=== PATIENT | female | born 1940 | race Caucasian/White ===

== ENCOUNTER 2021-10-21 22:31 | Inpatient (IN) | payer MEDICARE, BC ==
[~2021-10-21] VITALS: Ht 167.6 cm; Wt 51.7 kg
--- NOTE | 2021-10-21 22:50 | NUR ---
PATIENT WAS [id number] WITH COMPLAINTS OF PAIN AT THE RIGHT SIDE OF THE BACK OF HEAD PAIN S/P WITNESSED SYNCOPAL EPISODE. SHE WAS KO'D AND SUSTAINED AN ABRASION. PT IS AAO X 4, NO SIGN OF ACUTE DISTRESS, BREATHING WAS EVEN AND UNLABORED. PT CAME WITH IV LINE AT LAC 20G, PATENT AND FLUSHING WELL. PT WAS SEEN AND EXAMINED BY DR STOCKTON. PT ATTACHED TO MONITOR AND PULSE OX. WILL CONTINUE TO MONITOR AND CARRY OUT MD ORDERS.
[2021-10-21] MEDS ORDERED: SIMV-49 PO (22:56)
[2021-10-21] MEDS ORDERED: EZET10TA16 PO (22:57)
[2021-10-21] MEDS ORDERED: ACYC200C31 PO (22:58)
[2021-10-21] MEDS ORDERED: ZOLP10TA2 PO (22:58)
[2021-10-21] MEDS ORDERED: HYDR-3972 PO (22:59)
[2021-10-21] MEDS ORDERED: HYDR-3976 PO (22:59)
[2021-10-21] MEDS ORDERED: TDAP [DIPH/PERTUSSIS/TET] 0.5 ML VIAL IM ONE ×2 (23:00)
[2021-10-21] MEDS ORDERED: METO25TA4 PO (23:00)
[2021-10-21] MEDS ORDERED: CYCL5TAB PO (23:01)
--- NOTE | 2021-10-21 23:17 | NUR ---
ACUTE CARE NURSE PRACTITIONER AT PT'S BEDSIDE
[2021-10-21 23:19] LABS: BASOPHILS % (AUTO) 0.6 % (0.0-2.0); EOSINOPHILS % (AUTO) 1.3 % (0.0-6.0); HEMATOCRIT 39 % (33-45); HEMOGLOBIN 12.9 g/dL (11.5-14.8); LYMPHOCYTES # (AUTO) 2.5 K/uL (0.8-4.8); MEAN CORPUSCULAR HGB CONC 33 g/dl (31.0-36.0); MEAN CORPUSCULAR VOLUME 90 fL (82-100); MONOCYTES # (AUTO) 0.5 K/uL (0.1-1.30); MONOCYTES % (AUTO) 7.2 % (2.0-12.0); NEUTROPHILS # (AUTO) 3.7 K/uL (1.8-8.9); NEUTROPHILS % (AUTO) 53.9 % (43.0-81.0); PLATELET COUNT (AUTO) 196 K/uL (150-450); RED BLOOD CELL COUNT(AUTO) 4.36 MIL/uL (4.0-5.2); WHITE BLOOD COUNT (AUTO) 6.8 K/uL (4.3-11.0)
[2021-10-21 23:34] LABS: CALCIUM, SERUM 9.3 mg/dL (8.5-10.1); CARBON DIOXIDE 33 mmol/L (21-32); CHLORIDE 102 mmol/L (98-107); CREATININE 0.8 mg/dL (0.6-1.3); GLUCOSE 119 mg/dL (74-106); POTASSIUM 4.3 mmol/L (3.5-5.1); SODIUM SERUM 140 mmol/L (136-145); UREA NITROGEN, BLOOD 32 mg/dL (7-18)
[2021-10-21 23:39] LABS: ALANINE AMINOTRANSFERASE 55 U/L (12-78); ALBUMIN 3.8 g/dL (3.4-5.0); ALKALINE PHOSPHATASE 69 U/L (46-116); ASPARTATE AMINOTRANSFERASE 41 U/L (15-37); BILIRUBIN,DIRECT 0.1 mg/dL (0.0-0.2); BILIRUBIN,TOTAL 0.5 mg/dL (0.2-1.0)
--- NOTE | 2021-10-21 23:59 | NUR ---
PT BACK TO BED [address]
[2021-10-22] VITALS (7 sets, daily range): BP systolic 134–151; BP diastolic 58–78
[2021-10-22] MEDS ORDERED: LIDOCAINE 0.5%-EPI 1:200,000 50 ML VIAL ONE (00:23)
--- NOTE | 2021-10-22 00:30 | NUR ---
PT AT BEDSIDE, STATES PT'S PRIMARY IS WITH [facility] AND WANTED TO POSSIBLY TRANSFER PATIENT. ADVISED PT PT WILL BE ADMITTED INPATIENT TONIGHT AND CM WILL HAVE TO ARRANGE TRANSFER IN AM.
[2021-10-22] MEDS ORDERED: IV NS 0.9% 1,000 ML IV PRN ×2 (01:00→07:24)
[2021-10-22] MEDS ORDERED: MAGNESIUM HYDROXIDE 30 ML UDC PO PRN (01:00)
[2021-10-22] MEDS ORDERED: MAG HYDROX/AL HYDROX/SIMETH 30 ML UDC PO PRN (01:00)
[2021-10-22] MEDS ORDERED: HYDROCODONE/APAP 5/325MG TABLET PO PRN (01:00)
[2021-10-22] MEDS ORDERED: ACETAMINOPHEN 325 MG TABLET PO PRN (01:00)
[2021-10-22] MEDS ORDERED: Z GUARD REMEDY 2 OZ OINT TP PRN (01:00)
[2021-10-22] MEDS ORDERED: ONDANSETRON HCL/PF 4 MG/2 ML VIAL IVP PRN (01:00)
--- NOTE | 2021-10-22 02:19 | NUR ---
FAXED CLINICAL AND FACESHEET TO [facility] TRANSFER
--- NOTE | 2021-10-22 03:45 | NUR ---
REPORT GIVEN TO RENETTA SMITH FOR CONTINUATION OF CARE
--- NOTE | 2021-10-22 03:46 | NUR ---
PATIENT TRANSFERRED UNDER ACLS
--- NOTE | 2021-10-22 04:00 | NUR ---
RESPIRATORY TECHNICIAN ADMITTING NOTE PT TRANSPORTED BY STRETCHER TO UNIT AT THIS TIME FROM ED. RECEIVED REPORT FROM SARAH COTE @ ED. PT IS A/O X4, ABLE TO COMMUNICATE NEEDS. NO SOB NOTED, NO C/O PAIN AT THIS TIME. NO S/S OF ANY APPARENT DISTRESS NOTED. RESPIRATIONS EVEN AND UNLABORED. ACTIVE BOWEL SOUNDS AUSCULTATED THROUGHOUT, ABDOMEN IS NON DISTENDED. SKIN IS INTACT, WARM TO TOUCH. CAPILLARY REFILL < 3 SECS, PULSES PRESENT BILATERALLY, GOOD CIRCULATION NOTED. IV ACCESS NOTED IN LEFT AC G # 20 SL AND R AC G # 18, INTACT, PATENT AND FLUSHING WELL. PT'S BELONGINGS ACCOUNTED FOR AND KEPT AT BEDSIDES PER PT REQUEST. ASPIRATION PRECAUTIONS IN PLACE AND MAINTAINED AT ALL TIMES, BED IN LOWEST, LOCKED POSITION, SIDE RAILS UP X2, TABLE AND CALL LIGHT WITHIN REACH. WILL CONTINUE WITH PLAN OF CARE.
[2021-10-22] MEDS ORDERED: PANTOPRAZOLE 40 MG TABLET.DR PO SCH (07:30)
--- NOTE | 2021-10-22 07:30 | NUR ---
RUBBER CALENDER HELPER OPENING NOTES RECEIVED PATIENT IN BED, AWAKE, ALERT AND ORIENTED X 4, ABLE TO MAKE NEEDS KNOWN. IN NO ACUTE DISTRESS NOTED. ON RA TOLERATING WELL. IV ACCESS ON RAC G#18 ONGOING IVF OF NS 1L X 75 CC/HR. INFUSING WELL. NO S/SX OF INFILTRATION NOTED. SAFETY PRECAUTIONS IN PACE: BED ON LOWEST LOCKED POSITION, SIDE RIALS UP X 2, CALL LIGHT WITHIN EASY REACH. WILL CONTINUE TO MONITOR ACCORDINGLY.
[2021-10-22 08:59] LABS: CALCIUM, SERUM 8.8 mg/dL (8.5-10.1); CREATININE 0.7 mg/dL (0.6-1.3); POTASSIUM 3.5 mmol/L (3.5-5.1)
[2021-10-22 09:00] LABS: BASOPHILS % (AUTO) 0.3 % (0.0-2.0); HEMATOCRIT 38 % (33-45); HEMOGLOBIN 12.7 g/dL (11.5-14.8); LYMPHOCYTES # (AUTO) 1.4 K/uL (0.8-4.8); LYMPHOCYTES % (AUTO) 13.6 % (20.0-44.0); MEAN CORPUSCULAR HGB CONC 34 g/dl (31.0-36.0); MEAN CORPUSCULAR VOLUME 90 fL (82-100); MONOCYTES # (AUTO) 0.6 K/uL (0.1-1.30); MONOCYTES % (AUTO) 5.9 % (2.0-12.0); NEUTROPHILS # (AUTO) 8.5 K/uL (1.8-8.9); NEUTROPHILS % (AUTO) 80.2 % (43.0-81.0); PLATELET COUNT (AUTO) 201 K/uL (150-450); RED BLOOD CELL COUNT(AUTO) 4.19 MIL/uL (4.0-5.2); WHITE BLOOD COUNT (AUTO) 10.6 K/uL (4.3-11.0)
[2021-10-22] MEDS ORDERED: ACYCLOVIR 200 MG CAPSULE PO SCH (09:00)
[2021-10-22] MEDS ORDERED: EZETIMIBE 10 MG TABLET PO SCH (09:00)
[2021-10-22] MEDS ORDERED: METOPROLOL SUCCINATE 25 MG TAB.SR.24H PO SCH (09:00)
[2021-10-22 09:05] LABS: ALBUMIN 3.6 g/dL (3.4-5.0); BILIRUBIN,TOTAL 0.8 mg/dL (0.2-1.0); MAGNESIUM 2.3 mg/dL (1.8-2.4); PHOSPHORUS 3.4 mg/dL (2.5-4.9); TOTAL PROTEIN, SERUM 6.7 g/dL (6.4-8.2)
--- NOTE | 2021-10-22 10:00 | NUR ---
RN NOTES FOLLOWED UP WITH MRI DEPARTMENT REGARDING THE SCHEDULE OF MRI. NO ANSWER. CALL STAFF COORDINATOR AND SPOKE TO DIAZ. PER DIAZ, MRI STAFF WILL COME IN TO DO THE PROCEDURE BUT NO SPECIFIC TIME. WILL CONTINUE TO FOLLOW UP.
[2021-10-22] MEDS ORDERED: ENSURE ENLIVE 237 ML LIQUID (VANILLA) PO SCH (13:00)
[2021-10-22] MEDS ORDERED: GADOTERATE MEGLUMINE 5 MMOL/10 ML VIAL IV ONE (17:51)
--- NOTE | 2021-10-22 18:48 | NUR ---
INFORMATICS CONSULTANT NOTES DISCHARGE PATIENT IN STABLE CONDITION. VITAL SIGNS WITHIN NORMAL LIMITS. DISCHARGE INSTRUCTIONS DISCUSSED WITH PATIENT. FOLLOW UP IN 1 WEEK FOR SUTURE REMOVAL INSTRUCTED. MRI DONE. INSTRUCTED PATIENT TO FOLLOW UP RESULT TO MEDICAL RESULT PRIOR TO SCHEDULE APPOINTMENT WITH PRIMARY. PATIENT VERBALIZED INSTRUCTIONS GIVEN. IV ACCESS REMOVED. COVERED WITH GAUZE, NO S/SX OF BLEEDING NOTED. WHEELED TO LOBBY SAFELY. LEFT UNIT IN STABLE CONDITION. MD AND CHARGE NURSE AWARE OF DISCHARGE.
[2021-10-22] MEDS ORDERED: SIMVASTATIN 20 MG TABLET PO SCH (22:00)
== END 2021-10-22 18:45 | disposition home or self-care (01) | DRG 74 ==
LOC: ER 22:35 → TELE 10-22 03:28
PROVIDERS: ADMIT Nurse Practitioner Acute Care; ATTEND Nurse Practitioner Acute Care
DX: G90.8 Other disorders of autonomic nervous system (principal); E86.0 Dehydration; E78.5 Hyperlipidemia, unspecified; I10 Essential (primary) hypertension; N64.4 Mastodynia; S01.01XA Laceration without foreign body of scalp, initial encounter; W19.XXXA Unspecified fall, initial encounter; Y93.9 Activity, unspecified; G89.29 Other chronic pain; R51.9 Headache, unspecified; R93.1 Abnormal findings on diagnostic imaging of heart and coronary circulation; Y92.000 Kitchen of unspecified non-institutional (private) residence as the place of occurrence of the external cause; Z98.1 Arthrodesis status; Z20.822 Contact with and (suspected) exposure to COVID-19; A60.09 Herpesviral infection of other urogenital tract
CPT/HCPCS: 36415; 70450-TC; 70553-TC; 71045-TC; 72125-TC; 80048-TC; 80053-TC; 80076-TC; 82962-TC; 83735-TC; 84100-TC; 84484-TC; 85025-TC; 85730-TC; 87081-TC; 90715; 93307-TC; 93880-TC; 97116-TC; 97530-TC; A6403; A9575; C9803; G0378; G0480; J3490

== ENCOUNTER 2023-09-20 22:22 | Emergency (ER) | payer MEDICARE, BC ==
[~2023-09-20] VITALS: Ht 157.5 cm; Wt 45.4 kg
[~2023-09-20 22:22] MED LIST: ACYC200C31 PO; CYCL5TAB PO; EZET10TA16 PO; HYDR-3972 PO; METO25TA4 PO; SIMV-49 PO; ZOLP10TA2 PO
[2023-09-21] MEDS ORDERED: TDAP [DIPH/PERTUSSIS/TET] 0.5 ML VIAL IM ONE ×2 (00:02)
[2023-09-21] MEDS ORDERED: LIDOCAINE 1% INJ 50 ML MDV IJ ONE (00:04)
[2023-09-21] MEDS ORDERED: ACET-2605 PO (01:17)
[2023-09-21] MEDS ORDERED: AMOX-430 PO (01:17)
[2023-09-21 02:15] VITALS: BP 121/63; TEMP 98; O2SAT 97
== END 2023-09-21 02:16 | disposition home or self-care (01) ==
LOC: ER 22:25
DX: S62.633A Displaced fracture of distal phalanx of left middle finger, initial encounter for closed fracture (principal); S61.213A Laceration without foreign body of left middle finger without damage to nail, initial encounter; S61.215A Laceration without foreign body of left ring finger without damage to nail, initial encounter; I10 Essential (primary) hypertension; Z90.49 Acquired absence of other specified parts of digestive tract; W20.8XXA Other cause of strike by thrown, projected or falling object, initial encounter; Y93.89 Activity, other specified; Y92.89 Other specified places as the place of occurrence of the external cause; Y99.8 Other external cause status
CPT/HCPCS: 12001; 73130; 90471; 90715; 99283; J3490